=== PATIENT | female | born 1970 | race African-American/Black ===

== ENCOUNTER 2016-09-26 18:02 | Emergency (ER) | payer SELFPAY ==
[~2016-09-26 18:02] MED LIST: Sodium Chloride 0.9% 1,000 ML BAG ONE
--- NOTE | 2016-09-26 18:41 | RAD ---
FRONTAL RADIOGRAPH CHEST 09/26/16 COMPARISON: None. HISTORY: Chest pain. FINDINGS: Lungs are clear. Heart and mediastinal contours are grossly unremarkable. IMPRESSION: No acute findings. POS: [facility]
[2016-09-26] MEDS ORDERED: Ondansetron HCl/PF 4 MG/2 ML Vial ONE (18:53)
[2016-09-26] MEDS ORDERED: Nitroglycerin 0.4 MG TAB 1 EACH ONE (18:53)
[2016-09-26 19:05] LABS: #Basophils 0.1 thou/uL (0.0-0.2); #Eosinphils 0.1 thou/uL (0.0-0.7); #Lymphocytes 2.3 thou/uL (1.20-3.40); #Monocytes 0.2 thou/uL (0.11-0.59); #Neutrophils 2.1 thou/uL (1.40-6.50); %Basophils 1.5 % (0.0-1.0); %Eosinophils 1.2 % (0.0-10.0); %Lymphocytes 48.3 % (21.0-51.0); %Neutrophils 45.1 % (42.0-75.0); Anisocytosis MODERATE=16-30 cells (100X) (0-5/hpf); Hemoglobin 9.3 g/dL (12.0-16.0); Hypochromia MODERATE=16-30 cells (100X) (0-5/hpf); MDiff Complete? YES; Mean Corpuscular HGB CONC 30.7 g/dL (32.0-36.0); Mean Corpuscular Hemoglobin 22.2 pg (27.0-31.0); Mean Corpuscular Volume 72.2 fl (81.0-99.0); Mean Platelet Volume 7.3 fL (7.4-10.4); Microcytosis MODERATE=15-30 cells (100X) (0-5/hpf); PLT Morphology Comment Appears Adequate; Platelet Count 373 thou/uL (130-400); RBC Distribution Width 17.2 % (11.5-14.5); Red Blood Cell (RBC) Count 4.21 mill/uL (4.20-5.40); White Blood Cell (WBC) Count 4.7 thou/uL (4.8-10.8)
[2016-09-26 19:11] LABS: ALT (SGPT) 21 U/L (8-55); AST (SGOT) 21 U/L (5-34); Albumin 4.4 g/dL (3.5-5.0); Alkaline Phosphatase 81 U/L (40-150); Anion Gap 16 mmol/L (10-20); BUN (Urea Nitrogen) 8 mg/dL (7.0-18.7); Bilirubin, Total Less than 0.3 mg/dL (0.2-1.2); Calc. Creatinine Clearance 0 mL/min (70-130); Calcium 9.5 mg/dL (7.8-10.44); Carbon Dioxide 23 mmol/L (22-29); Chloride 106 mmol/L (98-107); Estimated GFR-MDRD 89; Globulin 3.7 g/dL (2.4-3.5); Glucose 85 mg/dL (70-105); Lipase 18 U/L (8-78); Potassium 3.8 mmol/L (3.5-5.1); Protein, Total 8.1 g/dL (6.0-8.3); Sodium 141 mmol/L (136-145)
[2016-09-26 19:13] LABS: Troponin I Less than 0.010 ng/mL (< 0.028)
[2016-09-26] MEDS ORDERED: Lorazepam 1 MG TAB ONE (19:33)
[2016-09-26 19:59] LABS: CKMB 0.3 ng/mL (0-6.6)
== END 2016-09-26 20:09 | disposition home or self-care (01) ==
LOC: MADERS 18:02
DX: F41.1 Generalized anxiety disorder (principal); Z79.899 Other long term (current) drug therapy
CPT/HCPCS: 71010; 80053; 82553; 83690; 84484; 85025; 93005; 96361; 96374; 96375; J2270; J2405; J7050

== ENCOUNTER 2016-12-02 00:48 | Emergency (ER) | payer OTHER, SELFPAY ==
[2016-12-02] MEDS ORDERED: Ondansetron ODT 4 MG TAB ONE (02:01)
[2016-12-02 02:48] LABS: ALT (SGPT) 17 U/L (8-55); AST (SGOT) 14 U/L (5-34); Albumin 4.2 g/dL (3.5-5.0); Alkaline Phosphatase 96 U/L (40-150); Anion Gap 14 mmol/L (10-20); BUN (Urea Nitrogen) 6 mg/dL (7.0-18.7); Bilirubin, Total Less than 0.3 mg/dL (0.2-1.2); Calc. Creatinine Clearance 0 mL/min (70-130); Calcium 9.3 mg/dL (7.8-10.44); Carbon Dioxide 25 mmol/L (22-29); Chloride 106 mmol/L (98-107); Estimated GFR-MDRD Greater than 90; Globulin 3.3 g/dL (2.4-3.5); Glucose 95 mg/dL (70-105); Potassium 3.7 mmol/L (3.5-5.1); Protein, Total 7.5 g/dL (6.0-8.3); Sodium 141 mmol/L (136-145)
[2016-12-02 02:54] LABS: #Basophils 0.1 thou/uL (0.0-0.2); #Eosinphils 0.1 thou/uL (0.0-0.7); #Lymphocytes 1.6 thou/uL (1.20-3.40); #Monocytes 0.3 thou/uL (0.11-0.59); #Neutrophils 1.4 thou/uL (1.40-6.50); %Basophils 1.5 % (0.0-1.0); %Eosinophils 2.2 % (0.0-10.0); %Monocytes 9.3 % (0.0-10.0); %Neutrophils 41.1 % (42.0-75.0); Hemoglobin 8.9 g/dL (12.0-16.0); Mean Corpuscular Hemoglobin 23.1 pg (27.0-31.0); Mean Corpuscular Volume 74.5 fl (81.0-99.0); Mean Platelet Volume 6.3 fL (7.4-10.4); Platelet Count 307 thou/uL (130-400); RBC Distribution Width 16.7 % (11.5-14.5); Red Blood Cell (RBC) Count 3.84 mill/uL (4.20-5.40); White Blood Cell (WBC) Count 3.4 thou/uL (4.8-10.8)
[2016-12-02 02:55] LABS: Anisocytosis SLIGHT = 6-15 cells (100X) (0-5/hpf); Hypochromia SLIGHT = 6-15 cells (100X) (0-5/hpf); MDiff Complete? YES; Macrocytosis SLIGHT = 6-15 cells (100X) (0-5/hpf); Microcytosis SLIGHT = 6-15 cells (100X) (0-5/hpf); PLT Morphology Comment Appears Adequate; Poikilocytosis SLIGHT = 6-15 cells (100X) (0-5/hpf); RBC Morphology ABNORMAL
[2016-12-02 02:58] LABS: Bilirubin Negative (Negative); Blood, Urine Large (Negative); Clarity Clear (Clear); Glucose, Urine (Dipstick) Negative (Negative); Leukocyte Trace (Negative); Nitrite Negative (Negative); Protein, Urine (Dipstick) Negative (Neg-Trace); Urobilinogen 0.2 mg/dL (0.2-1.0); WBC/HPF 0-3 HPF (0-3)
[2016-12-02 02:59] LABS: Bacteria/HPF Rare-Few HPF (None Seen)
[2016-12-02 03:00] LABS: Amphetamine Not Detected (NotDetected); Barbiturates Screen Detected (NotDetected); Benzodiazepine Screen Detected (NotDetected); Cocaine Metabolite Screen Not Detected (NotDetected); Medtox Control Line Valid? VALID (VALID); Methadone Not Detected (NotDetected); Methamphetamine Not Detected (NotDetected); Opiate Screen Detected (NotDetected); Oxycodone Screen Not Detected (NotDetected); Phencyclidine (PCP) Not Detected (NotDetected); THC/Cannabinoid Screen Not Detected (NotDetected); Tricyclic Screen Not Detected (NotDetected)
[2016-12-02] MEDS ORDERED: Promethazine HCl 25 MG/ML VIAL ONE (03:05)
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
== END 2016-12-02 03:55 | disposition home or self-care (01) ==
LOC: MADERS 00:48
DX: M54.5 Low back pain (principal); D64.9 Anemia, unspecified; R51 Headache; F41.9 Anxiety disorder, unspecified
CPT/HCPCS: 36415; 72131; 80053; 80306; 81003; 81015; 85025; 96372; J2270; J2550; Q0162

== ENCOUNTER 2017-03-24 23:15 | Emergency (ER) | payer BC, OTHER, SELFPAY ==
[2017-03-25 01:01] LABS: Bilirubin Negative (Negative); Blood, Urine Negative (Negative); Clarity Clear (Clear); Glucose, Urine (Dipstick) Negative (Negative); Leukocyte Negative (Negative); Nitrite Negative (Negative); Protein, Urine (Dipstick) Negative (Neg-Trace); Urobilinogen 0.2 mg/dL (0.2-1.0)
[2017-03-25 01:06] LABS: Bacteria/HPF Rare-Few HPF (None Seen); RBC/HPF 0-3 HPF (0-3); Squamous Epithelial 0-3 HPF (0-3); WBC/HPF 0-3 HPF (0-3); Yeast-All Forms 1+ HPF (None Seen)
[2017-03-25 01:39] LABS: BHCG - Serum Negative (NEGATIVE); Pregs Control Background? CLEAR/WHITE (CLR/WHITE); Pregs Control Bar Appear? YES (CONTROL BAR)
[2017-03-25 01:46] LABS: ALT (SGPT) 10 U/L (8-55); AST (SGOT) 13 U/L (5-34); Albumin 4.2 g/dL (3.5-5.0); Alkaline Phosphatase 91 U/L (40-150); Anion Gap 15 mmol/L (10-20); BUN (Urea Nitrogen) 5 mg/dL (7.0-18.7); Bilirubin, Total 0.2 mg/dL (0.2-1.2); Calc. Creatinine Clearance 0 mL/min (70-130); Carbon Dioxide 25 mmol/L (22-29); Chloride 106 mmol/L (98-107); Estimated GFR-MDRD Greater than 90; Glucose 94 mg/dL (70-105); Lipase 8 U/L (8-78); Potassium 3.5 mmol/L (3.5-5.1); Protein, Total 7.2 g/dL (6.0-8.3); Sodium 142 mmol/L (136-145)
[2017-03-25 01:50] LABS: Hemoglobin 8.9 g/dL (12.0-16.0); Mean Corpuscular HGB CONC 30.6 g/dL (32.0-36.0); Mean Corpuscular Hemoglobin 22.8 pg (27.0-31.0); Mean Corpuscular Volume 74.5 fL (81.0-99.0); RBC Distribution Width 17.7 % (11.5-14.5); White Blood Cell (WBC) Count 4.3 thou/uL (4.8-10.8)
[2017-03-25 01:51] LABS: #Basophils 0.1 thou/uL (0.0-0.2); #Monocytes 0.2 thou/uL (0.11-0.59); #Neutrophils 2.6 thou/uL (1.40-6.50); %Basophils 1.3 % (0.0-1.0); %Eosinophils 0.3 % (0.0-10.0); %Lymphocytes 32.1 % (21.0-51.0); %Monocytes 5.7 % (0.0-10.0); %Neutrophils 60.9 % (42.0-75.0); Lymphocytes 38 % (21-51); MDiff Complete? YES; Manual Diff?? YES; Mean Platelet Volume 7.4 fL (7.4-10.4); Neutrophil 52 % (42-75); Platelet Count 285 thou/uL (130-400); Reactive Lymphocytes 2 % (0-10)
[2017-03-25 01:52] LABS: Anisocytosis SLIGHT = 6-15 cells (100X) (0-5/hpf); Giant Platelets SLIGHT; Hypochromia MODERATE=16-30 cells (100X) (0-5/hpf); Microcytosis SLIGHT = 6-15 cells (100X) (0-5/hpf); Monocytes 7 % (0-10); Ovalocytes SLIGHT = 2-5 cells (100X) (0-1/hpf); PLT Morphology Comment Appears Adequate; Poikilocytosis SLIGHT = 6-15 cells (100X) (0-5/hpf); Target Cells SLIGHT = 2-5 cells (100X) (0-1/hpf)
[2017-03-25 01:53] LABS: RBC Morphology Abnormal
[2017-03-25] MEDS ORDERED: Diazepam 10 MG/2 ML SYRINGE ONE (02:22)
[2017-03-25] MEDS ORDERED: MORPHINE 10 MG/ML SYRINGE ONE (02:22)
[2017-03-25] MEDS ORDERED: Lorazepam 2 MG/ML VIAL ONE (02:23)
[2017-03-25] MEDS ORDERED: Ondansetron HCl/PF 4 MG/2 ML Vial ONE (02:23)
--- NOTE | 2017-03-25 07:45 | RAD ---
TWO VIEWS OF THE LUMBAR SPINE: DATE: 03/25/17. COMPARISON: None. HISTORY: Joint pain. FINDINGS: Postsurgical clips in right upper quadrant suggest prior cholecystectomy. Five lumbar-type vertebral bodies are present with intact pedicles on frontal imaging. Lateral imaging demonstrates normal yolanda tebral body height and alignment. IMPRESSION: No acute findings. POS: [facility]
--- NOTE | 2017-03-25 07:53 | RAD ---
AP PELVIS RADIOGRAPH: DATE: 03/25/17. HISTORY: Hip joint pain. FINDINGS: Hip joints are symmetric in appearance bilaterally, and no fracture or dislocation is seen. No lytic or sclerotic osseous lesions are identified. Phleboliths overlie the pelvis. IMPRESSION: No acute osseous abnormality. POS: [facility]
== END 2017-03-25 03:57 | disposition home or self-care (01) ==
LOC: MADERS 23:15
DX: M54.5 Low back pain (principal); D64.9 Anemia, unspecified; F41.9 Anxiety disorder, unspecified; Z79.899 Other long term (current) drug therapy
CPT/HCPCS: 36415; 72100; 72170; 80053; 81001; 82150; 83690; 84703; 85025; 87086; 96374; 96375; J2060; J2270; J2405; J3360

== ENCOUNTER 2017-06-10 18:46 | Emergency (ER) | payer BC ==
[~2017-06-10 18:46] MED LIST changes: +Iopamidol 370 76% 125 ML VIAL FS ONE
[2017-06-10] MEDS ORDERED: Ondansetron ODT 4 MG TAB ONE (19:45)
[2017-06-10 19:59] LABS: #Basophils 0.1 thou/uL (0.0-0.2); #Eosinphils 0.1 thou/uL (0.0-0.7); #Lymphocytes 2.7 thou/uL (1.20-3.40); #Monocytes 0.6 thou/uL (0.11-0.59); %Basophils 1.7 % (0.0-1.0); %Eosinophils 0.8 % (0.0-10.0); %Lymphocytes 36.5 % (21.0-51.0); Anisocytosis SLIGHT = 6-15 cells (100X) (0-5/hpf); Hemoglobin 10.5 g/dL (12.0-16.0); Hypochromia SLIGHT = 6-15 cells (100X) (0-5/hpf); MDiff Complete? YES; Mean Corpuscular HGB CONC 29.8 g/dL (32.0-36.0); Mean Corpuscular Hemoglobin 23.6 pg (27.0-31.0); Mean Corpuscular Volume 79.1 fl (81.0-99.0); Microcytosis SLIGHT = 6-15 cells (100X) (0-5/hpf); Ovalocytes SLIGHT = 2-5 cells (100X) (0-1/hpf); PLT Morphology Comment Appears Adequate; Platelet Count 302 thou/uL (130-400); RBC Distribution Width 17.4 % (11.5-14.5); Red Blood Cell (RBC) Count 4.48 mill/uL (4.20-5.40); White Blood Cell (WBC) Count 7.5 thou/uL (4.8-10.8)
[2017-06-10 20:06] LABS: Anion Gap 17 mmol/L (10-20); BUN (Urea Nitrogen) 15 mg/dL (7.0-18.7); Calc. Creatinine Clearance 0 mL/min (70-130); Calcium 9.1 mg/dL (7.8-10.44); Carbon Dioxide 21 mmol/L (22-29); Chloride 105 mmol/L (98-107); Estimated GFR-MDRD 80; Glucose 91 mg/dL (70-105); Potassium 3.9 mmol/L (3.5-5.1); Sodium 139 mmol/L (136-145)
[2017-06-10] MEDS ORDERED: Acetaminophen/Codeine 30-300mg Tablet ONE (20:21)
--- NOTE | 2017-06-10 23:19 | CT ---
aCTA OF THE CHEST WITH CONTRAST: History: Tachycardia and elevated D-Dimer. Technique: Multiple contiguous axial images were obtained in a CTA of the chest performed with ====== = protocol. 3D oblique MIP reformats and direct coronal reformats were performed. FINDINGS: The pulmonary arteries are well opacified without filling defects to suggest pulmonary emboli. The he art is normal in size without focal cardiac abnormality. No hilar or mediastinal lymphadenopathy are seen. No focal infiltrates or masses are seen in the lungs. No pneumothorax or pleural effusion are seen. The visualized subdiaphragmatic structures and chest wall soft tissues are unremarkable. The bones ar e unremarkable. IMPRESSION: No evidence of pulmonary thromboembolism. POS: [facility]
--- NOTE | 2017-06-10 23:22 | CT ---
CT OF ABDOMEN AND PELVIS WITH CONTRAST: Comparison: None. History: Abdominal pain for three days. Patient had a vaginal biopsy three days ago for cervical canc er and now has cramping and heavy bleeding. Technique: Multiple contiguous axial images were obtained in a CT of the abdomen and pelvis with cont rast. Coronal reformats were performed. FINDINGS: The patient is status post cholecystectomy. The liver, kidneys, adrenal glands, spleen, and pancreas are unremarkable. No free air, free fluid, or stranding changes are seen in the abdomen or pelvis. The uterus has an unusual hypodense appearance. Large and small bowel are unremarkable. The urinary b ladder is unremarkable. No abdominal or pelvic lymphadenopathy are seen. The osseous structures, visualized inferior thorax and abdominal wall soft tissues are unremarkable. IMPRESSION: 1. No evidence of acute intraabdominal/pelvic abnormality. 2. There is an abnormal appearance of the uterus. This could be secondary to endometrial or cervical malignancy. Correlate with biopsy result. POS: [facility]
== END 2017-06-10 23:50 | disposition home or self-care (01) ==
LOC: MADERS 18:46
DX: M54.5 Low back pain (principal); F41.9 Anxiety disorder, unspecified
CPT/HCPCS: 36415; 71275; 74177; 80048; 83605; 85025; 85379; 96360; 96372; J7050; Q0162